=== PATIENT | female | born 1945 | race Caucasian/White ===

== ENCOUNTER 2017-06-30 05:30 | Inpatient (IN) | payer OTHER ==
[2017-06-18 14:00] LABS: HEMATOCRIT 35.4 % (37.0-47.0); HEMOGLOBIN 11.8 gm/dL (12.0-15.0); MCH 30.8 pg (26.0-34.0); MCHC 33.2 g/dL (28.0-37.0); MCV 92.8 fL (80.0-100.0); RBC 3.81 mil/uL (4.20-5.00); RDW 14.3 % (10.5-14.5); WBC 8.7 thou/uL (4.0-11.0)
[2017-06-18 14:15] LABS: PROTIME 10.6 Seconds (9.3-11.4)
[2017-06-18 14:46] LABS: URINE BILIRUBIN NEGATIVE (Negative); URINE BLOOD NEGATIVE (Negative); URINE CLARITY CLEAR; URINE COLOR YELLOW; URINE GLUCOSE-RANDOM* NEGATIVE (Negative); URINE KETONES NEGATIVE (Negative); URINE NITRITE-REFLEX NEGATIVE (Negative); URINE PROTEIN (DIPSTICK) NEGATIVE (Negative); URINE UROBILINOGEN 0.2 E.U./dl (0.2-1.0)
[2017-06-18 14:47] LABS: URINE LEUKOCYTES-REFLEX 1+ (Negative)
[2017-06-18 15:01] LABS: CASTS None Seen /LPF (None Seen); CRYSTALS None Seen /LPF (None Seen); SQUAMOUS >10 Many /LPF (0-3)
[2017-06-18 15:02] LABS: BACTERIA-REFLEX 1-9 Few /HPF (None Seen); URINE RBC None Seen /HPF (0-2)
[2017-06-18 15:03] LABS: URINE WBC-REFLEX 0-5 Rare /HPF (0-5)
[~2017-06-30] VITALS: Ht 160 cm; Wt 71.7 kg
--- NOTE | ~2017-06-30 | O ---
[facility] [place] [address] OPERATIVE REPORT Name: DEVEN CARABALLO Room #: 408-P [facility] IN M.R.#: [id number] Admission: 06/30/17 Attend Phys: Royce Cooley MD Discharge: 07/02/17 Date of : 47 Report #: [id number] THIS REPORT FOR: //name// CC: Tha Cooley DATE OF SERVICE: 06/30/2017 PREOPERATIVE DIAGNOSIS: Right hip osteoarthritis. POSTOPERATIVE DIAGNOSIS: Right hip osteoarthritis. PROCEDURE: Right total hip arthroplasty. SURGEON: Royce Cooley MD. HORSE STUD MANAGER: Virginia Muniz PA-C. INDICATIONS FOR HORSE STUD MANAGER: Throughout the case, extensive retraction and manipulation of the hip as well as dislocation and reduction was required. This was afforded to me by my assistant professor of religion. ANESTHESIA: General endotracheal. IMPLANTS: [employer] size 52 R3 acetabular cup with 1 acetabular screw, size 11 high offset Synergy press fit stem and a size 36 +0 cobalt chrome head. ESTIMATED BLOOD LOSS: 150 mL. COMPLICATIONS: None. SPECIMENS: None. CONDITION UPON LEAVING THE OPERATING ROOM: Stable. INDICATION FOR PROCEDURE: The patient is a 71-year-old female with right hip osteoarthritis. She had failed conservative treatment for this and after discussion with her, she elected for right total hip arthroplasty. DESCRIPTION OF PROCEDURE: Risks, benefits, alternatives, complications were discussed in detail with the patient including but not limited to risk of anesthesia, risk of damage to nerves, arteries, blood vessels, risk for infection, bleeding, risk for continued hip pain, leg length discrepancy, instability and need for reoperation. Informed consent was obtained from the patient. The right hip was appropriately marked in the preoperative holding area. IV clindamycin was given for preoperative antibiotics. She was brought [address] [address] OPERATIVE REPORT Name: DEVEN CARABALLO Radha Room #: 408-P [facility] IN M.R.#: [id number] Admission: 06/30/17 Attend Phys: Royce Cooley MD Discharge: 07/02/17 Date of : 47 Report #: [id number] to the operating room and placed in supine position on operating room table. General endotracheal anesthesia was induced without complication. She has been placed in the left lateral decubitus position with the right hip uppermost. Right hip and lower extremity were prepped and draped in normal sterile fashion. Timeout was performed properly identifying the patient and procedure as well as the instrumentation and implants. All in the operating room were in agreement. Standard posterior approach to the hip was made with 10 blade through the skin. Dissection was taken down to the fascia with Bovie cautery and a Mckeon elevator was used to clean off the fascia. A fresh #10 blade was used to make a fascial incision and this was taken proximally and distally with curved Rosa scissor. Charnley retractor was placed. Trochanteric bursa was taken down with Bovie. Short external rotators were also taken down with Bovie cautery. Capsulotomy was made and capsule ends were tagged for later repair. The hip was dislocated and a femoral neck cut 1 cm proximal to lesser trochanter based on preoperative templating was made. Femoral head was removed. Deep acetabular retractors were placed. The labrum was removed sharply. Pulvinar was removed with Bovie cautery. Acetabulum was then sequentially reamed up to a size 52, at which point, there was excellent bleeding cancellous bone. This was trialed with a size 51 cup and found to have a good fit. A final size 62 R3 acetabular cup was then placed and seated. One acetabular screw was placed for backup fixation. A polyethylene liner was placed for 36 head. Attention was turned to the femur. This was reamed and broached up to a size 11 at which point, the size 11 broach was stable. This was trialed with a high offset neck and a 36 +0 head. Hip was reduced, taken through range of motion, found to be stable, found to have equal leg lengths. Hip was dislocated. The broach was removed and a final size 11 high offset Synergy press fit stem was placed. This was trialed again with a 36 +0 head. Hip was reduced, taken through range of motion, found to be stable, found to have equal leg lengths. Hip was dislocated again. The trial head was removed and a final size 36 +0 cobalt chrome head was placed. Hip was reduced, taken through range of motion, found to be stable, found to have equal leg lengths. The wound was thoroughly irrigated with normal saline. Periarticular injection consisting of morphine, ropivacaine, epinephrine and Toradol was placed around the hip joint. A gram of vancomycin was placed deep in the joint. The capsule and piriformis were repaired with 0 FiberWire. Fascia was closed with 0 Vicryl, skin was closed with 2-0 Vicryl, 3-0 Monocryl. Dermabond and HIREN dressing were applied. The patient tolerated this procedure well and went to the recovery room under care of anesthesia postoperatively. <ELECTRONICALLY SIGNED> By: Royce Cooley MD 07/10/17 0728 1716 1749 Royce Cooley MD /nt
--- NOTE | ~2017-06-30 | EKG ---
[address] [place] [address] ELECTROCARDIOGRAM REPORT Name: DEVEN CARABALLO Room #: [facility]#: [id number] Admission: Attend Phys: Royce Cooley MD Discharge: Date of : 47 Report #: [id number] THIS REPORT FOR: //name// [facility] Test Date: 2017-06-18 Test Time: 13:28:37 Pat Name: DEVEN CARABALLO Department: Room: Gender: F Vp Integration: Magaly SHIRLEY : 1945 Requested By: Royce Cooley Order Number: [id number] MD: Benito Bey Measurements Intervals [place] Rate: 70 P: 54 [place]: 155 QRS: 2 QRSD: 81 T: 61 QT: 373 QTc: 403 Interpretive Statements Sinus rhythm No significant abnormality No previous ECG available for comparison Electronically Signed On 06-20-2017 7:45:05 [employer] by Benito Bey [email or web address] <ELECTRONICALLY SIGNED> By: Benito Bey MD, [facility] 06/20/17 0745 1328 1328 Benito Bey MD, FACC /EPI
[~2017-06-30 05:30] MED LIST: CELEXA20 MG PO; HYDROXYZINE HCL25 M2 PO; LISINOPRIL10 MG PO; METFORMIN HCL500 MG PO
[2017-06-30 12:00] VITALS: BP 152/81
[2017-06-30 17:00] VITALS: BP 121/64
[2017-06-30 19:19] VITALS: BP 117/59
[2017-07-01 00:03] VITALS: BP 132/50
[2017-07-01 04:10] VITALS: BP 104/72
[2017-07-01 06:44] LABS: HEMATOCRIT 29.1 % (37.0-47.0); HEMOGLOBIN 9.5 gm/dL (12.0-15.0); MCH 30.3 pg (26.0-34.0); MCHC 32.5 g/dL (28.0-37.0); MCV 93.2 fL (80.0-100.0); RBC 3.12 mil/uL (4.20-5.00); RDW 13.9 % (10.5-14.5); WBC 14.3 thou/uL (4.0-11.0)
[2017-07-01 09:48] VITALS: BP 106/57
[2017-07-01 19:38] VITALS: BP 111/49
[2017-07-02 04:17] VITALS: BP 121/61
[2017-07-02 06:37] LABS: HEMATOCRIT 31.1 % (37.0-47.0); HEMOGLOBIN 10.3 gm/dL (12.0-15.0); MCH 30.7 pg (26.0-34.0); MCHC 33.2 g/dL (28.0-37.0); MCV 92.6 fL (80.0-100.0); RBC 3.35 mil/uL (4.20-5.00); RDW 14.2 % (10.5-14.5); WBC 10.1 thou/uL (4.0-11.0)
[2017-07-02 08:00] VITALS: BP 139/56
[2017-07-02 14:54] VITALS: BP 139/56
== END 2017-07-02 16:03 | disposition home or self-care (01) | DRG 470 ==
LOC: PRE 05:30 → 4N 07:21 → TBA 07:21 → PRE 11:06 → 4N 17:19 → ENTRNSPT 07-02 15:35 → EDTRNSPTSTS 07-02 15:40 → 4N 07-02 16:03
PROVIDERS: Orthopaedic Surgery
PROC: 0SR902A Replacement of Right Hip Joint with Metal on Polyethylene Synthetic Substitute, Uncemented, Open Approach (ICD-10-PCS; principal; 2017-06-30)
DX: M16.11 Unilateral primary osteoarthritis, right hip (principal); Z88.0 Allergy status to penicillin; Z88.1 Allergy status to other antibiotic agents; Z88.8 Allergy status to other drugs, medicaments and biological substances
CPT/HCPCS: 10790; 50010; 50101; 50382; 50414; 50915; 51771; 53000; 53078; 53367; 54118; 56524; 56527; 56528; 56529; 56530; 57095; 62110; 62900; 70005